=== PATIENT | female | born 1970 | race African-American/Black ===

== ENCOUNTER 2017-11-19 14:35 | Emergency (ER) | payer OTHER ==
[2017-11-19 14:56] VITALS: BP 130/85; PULSE 96; TEMP 98.5; BMI 24.2
[2017-11-19] MEDS ORDERED: KETOROLAC TROMETHAMINE 60 MG/2 ML VIAL IM ONE (15:56)
[2017-11-19] MEDS ORDERED: KETOROLAC TROMETHAMINE 60 MG/2 ML VIAL ONE (16:01)
--- NOTE | 2017-11-19 16:03 | PDOC ---
History of Present Illness - General Chief Complaint: Pain, Acute Stated Complaint: SHOULDER AND ARM PAIN Time Seen by Provider: 11/19/17 15:52 History Source: Patient Exam Limitations: No Limitations - History of Present Illness Initial Comments: 11/19/17 15:57 47 yr female with pain to the left side neck, shoulder radiates to her arm for 3 days no fever no cough, pt woke up with the pain 3 days ago , worse with movement of the arm Severity: reports: mild Past History - Past Medical History Allergies/Adverse Reactions: Allergies Allergy/AdvReac Type Severity Reaction Status Date / Time No Known Allergies Allergy Verified 11/19/17 14:53 Home Medications: Ambulatory Orders Cyclobenzaprine HCl [Flexeril 10 mg] 10 mg PO TID PRN #21 tablet 11/19/17 Naproxen [Naprosyn -] 500 mg PO BID PRN #20 tablet 11/19/17 COPD: No Thyroid Disease: No - Suicide/Smoking/Psychosocial Hx Smoking History: Never smoked Have you smoked in the past 12 months: No Information on smoking cessation initiated: No Hx Alcohol Use: No Drug/Substance Use Hx: No Substance Use Type: None Trauma Specific PMHX - Complaint Specific PMHX Arthritis: No Back Injury: No Neck Injury: No Hx Sacro Iliac Joint Dysfunction: No Review of Systems - Review of Systems Able to Perform ROS?: Yes Is the patient limited Lao proficient: No Constitutional: No: Symptoms Reported HEENTM: No: Symptoms Reported Respiratory: No: Symptoms reported Cardiac (ROS): No: Symptoms Reported ABD/GI: No: Symptoms Reported Musculoskeletal: Yes: Symptoms Reported *Physical Exam - Vital Signs Last Vital Signs Temp Pulse Resp BP Pulse Ox 98.5 F 96 H 18 130/85 98 11/19/17 14:46 11/19/17 14:46 11/19/17 14:46 11/19/17 14:46 11/19/17 14:46 - Physical Exam General Appearance: Yes: Nourished, Appropriately Dressed HEENT: positive: EOMI, LOKESH Neck: positive: Supple, Decreased range of motion (due to pain ), Tender lateral (left side soft tissue tenderness ). negative: Tender, Tender midline Respiratory/Chest: positive: Lungs Clear, Normal Breath Sounds Musculoskeletal: positive: Normal Inspection Extremity: positive: Normal Capillary Refill, Normal Inspection, Normal Range of Motion, Other (left arm shoulder with pain on abduction , nv intact 5/5 strength ). 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 *DC/Admit/Observation/Transfer Diagnosis at time of Disposition: Cervical radiculopathy - Discharge Dispostion Disposition: HOME Condition at time of disposition: Good - Prescriptions Prescriptions: Cyclobenzaprine HCl [Flexeril 10 mg] 10 mg PO TID PRN #21 tablet PRN Reason: Muscle Spasms Naproxen [Naprosyn -] 500 mg PO BID PRN #20 tablet PRN Reason: Pain - Referrals Referrals: Ginger Oviedo MD [Primary Care Provider] - - Patient Instructions Additional Instructions: follow with your doctor on Tuesday or Tuesday take the naprosyn and flexeril as directed apply frequent warm compresses to the area of pain return to ER for any worsening symptoms - Post Discharge Activity
== END 2017-11-19 16:18 | disposition home or self-care (01) ==
LOC: JERFT 14:35 → JER 14:35 → JERFT 16:18
PROC: 3E0333Z Introduction of Anti-inflammatory into Peripheral Vein, Percutaneous Approach (ICD-10-PCS; principal; 2017-11-19)
DX: M54.12 Radiculopathy, cervical region (principal)
CPT/HCPCS: 96372; 99281-25